=== PATIENT | female | born 1985 | race Caucasian/White ===

== ENCOUNTER 2016-10-17 19:07 | Observation (INO) | payer OTHER ==
[~2016-10-17 19:07] MED LIST: IRON325 MG PO
--- NOTE | 2016-10-17 21:01 | ED NURSING NOTES ---
Clinical Report - Nurses [facility] [address] [place] [address] 10/17/2016 19:07 [id number] TRIAGE Triage time 19:02 Oct 17 2016. Acuity: LEVEL 3. Chief Complaint: FAINTING. 19:11 10/17/16. SEPSIS SCREEN: Sepsis Screen: negative. Negative (no infection suspected/documented). RYAN COMA SCORE: [place] Coma Scale: 15- eyes open spontaneously (4); best verbal response- oriented x 4 (5); best motor response- obeys commands (6). --19:11 Namrata Warner R.N. 19:02 10/17/16. BP: 117/61. HR: 102. RR: 12. O2 saturation: 100%. Temp: 99 F. Worrell-Westbrook pain scale: 2/10. --19:11 Namrata Warner R.N. 21:21 10/17/16. Alert (Autism spectrum disorder). --21:21 Namrata Warner R.N. Weight: 70 kg measured. Height/Length: 63 inches Per Patient. BMI: 27.3. --19:02 Namrata Warner R.N. Medications Heartburn pill. --19:06 Namrata Warner R.N. Allergy pill. --19:06 Namrata Warner R.N. Medication/allergy information source: the patient. --19:11 Namrata Warner R.N. Allergies No Known Drug Allergy. --19:06 Namrata Warner R.N. History Arrived by EMS. Historian: EMS and patient. This started just prior to arrival. ( PATIENT WAS A [employer] WITH HER BOYFRIEND WHEN SHE BECAME DIZZY, SHE WAS GOING TO SIT ON THE FLOOR WHEN SHE EITHER PASSED OUT OR NEARLY PASSED OUT. SHE DID STRIKE THE BACK OF HER HEAD ON THE CONCRETE FLOOR. SHE NOW COMPLAINS OF A HEADACHE). PAST MEDICAL HX: Immunizations: seasonal influenza. Last normal menstrual period- STATES THE END OF SEPTEMBER. SOCIAL HX: Never smoker. No alcohol use or drug use. No infectious disease exposure. ABUSE ASSESSMENT: No report of abuse. SELF HARM ASSESSMENT: A self harm assessment was performed. The patient answered "no" to the question "Have you recently felt down, depressed, or hopeless?", "Have you noticed less interest or pleasure in doing things?", "Do you have thoughts of harming or killing yourself?", "Are you here because you tried to hurt yourself?", "Have you ever tried to hurt yourself before today?", "Have you recently had thoughts about harming or killing others?" and "Do you have any dangerous items in your possession?". FALL RISK ASSESSMENT: Fall risk assessment completed. No fall risk identified. NUTRITIONAL RISK ASSESSMENT: The nutritional risk assessment revealed no deficiencies. FUNCTIONAL ASSESSMENT: Functional assessment: no impairments noted. LEARNING NEEDS ASSESSMENT: The learning needs assessment revealed no barriers. SKIN INTEGRITY ASSESSMENT: Skin integrity risk assessment completed. No skin integrity risk identified. --19:11 Namrata Warner R.N. Interventions ID band on patient. --19:11 Namrata Warner R.N. PHYSICAL ASSESSMENT 19:13 10/17/16. To room via stretcher. GENERAL / NEURO / PSYCH: Alert. Oriented X 4. HEENT: Pupils equal, round and reactive to light. No facial weakness. No sinus tenderness present or nasal discharge. Mucous membranes are pink. RESPIRATORY: Respirations not labored. Breath sounds within normal limits. CVS: Normal sinus rhythm noted. Capillary refill less than 2 seconds. Pulses within normal limits. GI / : Abdomen soft and nontender. SKIN: Skin intact. Skin is pale. Skin is dry. Normal skin turgor. --19:13 Namrata Warner R.N. NURSING PROGRESS NOTES 19:12 10/17/16. The initial plan of care for this patient includes an assessment with efforts to address the presence of pain; impairment of the cardiovascular, gastrointestinal and neurological system; hydration needs. This plan of care was discussed with the patient. monitor and storage bin tender, pulse oximeter and NIBP monitor placed on patient; manager cardiac- Lead II; monitor alarms on. Patient gowned. Patient identifiers checked. Call light placed in reach. Side rails up x 2. Bed placed in lowest position. Brakes of bed on. Patient ready for evaluation. ( BOYFRIEND IS WITH PATIENT AT BEDSIDE). --19:12 Namrata Warner R.N. 19:27 10/17/2016 Site #1 started via IV in the left antecubital space with an 20g angiocath, with aseptic technique and good blood return; one attempt. Blood drawn: rainbow set. Labeled in the presence of the patient and sent to the lab. Saline lock flushed with 10 mL saline (large pink tube drawn at time of IV start, blood band placed on pt.). --19:32 Lalitha rIby R.N. 19:36 10/17/16. Patient ID band checked for patient name and birthdate: patient confirmed. Instructions provided to collect clean catch urine and patient verbalized understanding. Clean catch urine collected with return of mark-colored clear urine; sample sent to lab for urinalysis and HCG. Specimen labeled in the presence of the patient. --19:36 Namrata Warner R.N. 20:02 10/17/2016 Started bag #1 1000 mL IV Fluids IV NS (Saline); at 2000 mL/hr over 30 minute(s) via site #1. Allergies verified and confirmed 5 rights. IV patency established. IV site checked: no pain, redness, or swelling. IV flushed thoroughly pre- and post-medication administration. --20:02 Namrata Warner R.N. 20:32 10/17/2016 IV Fluids IV NS Discontinued: bag #1 completed. Total amount infused: 1000 mL. --20:48 Namrata Warner R.N. 20:51 10/17/16. Reassessment after fluids administered. She has had no adverse reaction. Overall patient status is the same- she states feels the same. ( to be admitted). --20:51 Namrata Warner R.N. 20:51 10/17/16. BP: 123/78. HR: 103. RR: 18. O2 saturation: 100%. Pain level now 10/18. --20:51 Namrata Warner R.N. 20:52 10/17/16. Hemoccult test positive. (POC test reference range: negative). --20:52 Namrata Warner R.N. ( Orthostatic supine BP 123/72 HR 116). --21:25 [place]urch ( Orthostatic Sitting BP 117/65 HR 108). --21:25 [place] ( Orthostatic Standing BP 131/83 HR 110). --21:25 [place]. DISPOSITION / DISCHARGE 21:44 10/17/2016 Site #[address] upon admission; patent. Good blood return present. Flushed with 10 mL saline; flushes easily. --21:44 Namrata Warner R.N. 21:44 10/17/16. Departure time: 21:44 Oct 17 2016. Condition at departure: improved and stable. The goals identified in the patient's plan of care were met. Disposition: observation in Acute Care. Report was given to a nurse via a phone call. Report included patient's care, treatment, medications, reviewed medication reconcilliation, and condition (including any recent changes or anticipated changes). All questions were answered. (to MATIAS Yip). FALL RISK ASSESSMENT: Fall risk assessment completed. No fall risk identified. --21:44 Namrata Warner R.N. 20:47 10/17/16. BP: 123/78. HR: 103. RR: 18. O2 saturation: 100%. Pain level now 10/18. 19:02 10/17/16. BP: 117/61. HR: 102. RR: 12. O2 saturation: 100%. Temp: 99 F. Worrell-Westbrook pain scale: 10. --21:44 Namrata Warner R.N. Locked/Released at 10/17/2016 21:46 by Namrata Warner R.N.
--- NOTE | 2016-10-17 21:01 | ED ORDER SUMMARY ---
..... Patient: JAVIER WHITESIDE OrderSheet [facility] VisitID: [id number] [place] [address] 30y, F Registration Date/Time: 10/17/2016 ORDER SHEET Weight: 70 kg (measured) Allergies: No Known Drug Allergy GENERAL ORDERS: UA-Culture if indicated Urgent (19:32 10/17/2016 EInderbitzen R.N. verbal order read back to HBivens A.R.N.P.) (Ack 19:38 CHagerty ER Course Instructor) (19:41 CHagerty ER Course Instructor) Urine Urgent (19:32 10/17/2016 EInderbitzen R.N. verbal order read back to HBivens A.R.N.P.) (Ack 19:38 CHagerty ER Course Instructor) (19:41 CHagerty ER Course Instructor) CBC w Diff Urgent (19:56 10/17/2016 HBivens A.R.N.P.) (Ack 20:02 CHagerty ER Course Instructor) (20:47 EInderbitzen R.N.) BMP Urgent (19:56 10/17/2016 HBivens A.R.N.P.) (Ack 20:02 CHagerty ER Course Instructor) (20:47 EInderbitzen R.N.) Type & Screen Urgent (20:57 10/17/2016 HBivens A.R.N.P.) (Ack 21:07 CHagerty ER Course Instructor) Vitals - Orthostatic (20:57 10/17/2016 HBivens A.R.N.P.) (Ack 21:07 CHagerty ER Course Instructor) EKG - ER Stat (20:57 10/17/2016 HBivens A.R.N.P.) (Ack 21:07 CHagerty ER Course Instructor) MEDICATION ORDERS: IV FLUIDS: IV NS : initial bolus 1000 mL (1000 mL/hr), then none - (NOW) (19:56 10/17/2016 HBivens A.R.N.P.) (20:02 EInderbitzen R.N.) ORDER SHEET NOTES: [Electronically signed by Namrata Warner R.N. (21:46 10/17/2016)] [Electronically signed by Annika Leal (22:38 10/17/2016)] [Electronically locked/signed by Namrata Warner R.N. (21:46 10/17/2016)]
--- NOTE | 2016-10-17 21:01 | ED CLINICAL REPORT ---
Clinical Report - Physicians/Mid Levels [facility] [address] [place] [address] 10/17/2016 19:07 Patient: JAVIER WHITESIDE Time Seen: 1930; initial patient contact, initial documentation, patient care assumed. Arrived- By ambulance. Historian- patient. HISTORY OF PRESENT ILLNESS The patient has recovered. Chief Complaint: SYNCOPE. This occurred just prior to arrival. Event was witnessed. The patient had preceding symptoms of light-headedness and warmth. No preceding symptoms of chest pain or abdominal pain. The event occurred during light exertion (walking thru [employer]). The patient felt faint, lost consciousness and collapsed. No seizure activity, incontinence or apnea noted. Did not lose pulse. Had a single episode. The episode was brief and lasted seconds. Location of injuries- head. Currently she does not feel normal. No weakness currently. No nausea currently. Currently has headache. Similar symptoms previously: None. Recent medical care: Not recently seen/assessed. REVIEW OF SYSTEMS Last normal menstrual period- about x2 wks ago. Sexual history - sexually active, engages in unprotected sex and heterosexual. No contraception. She has had a headache and dizziness. No chest pain, palpitations, abdominal pain, vomiting or diarrhea. No black stools, bloody stools, fever, difficulty breathing or difficulty with urination. All systems otherwise negative, except as recorded above. PAST HISTORY See nurses notes. ( Hemorrhoids. Problems: Bartholin's Abscess. Autism. Seasonal allergic rhinitis. Dental Abscess. Additional Surgeries: Cyst.). SOCIAL HISTORY Light tobacco smoker. Occasional alcohol use. No drug use. No recent travel. Is a local resident. FAMILY HISTORY Negative. ADDITIONAL NOTES The nursing notes have been reviewed with agreement regarding the chief complaint, HPI, ROS, PMH and patient medications and allergies. PHYSICAL EXAM Vital Signs: 10/17/2016 19:02 BP: 117/61. HR: 102. RR: 12. O2 saturation: 100%. Temp: 99 F. Worrell-Westbrook pain scale: 2/10. Have been reviewed as abnormal and appear to be correct. Blood pressure normal. Tachycardic. Respiratory rate normal. Temperature normal. Oxygen saturation normal. Appearance: Alert. No acute distress. Eyes: Pupils equal, round and reactive to light. No nystagmus. Extraocular movements normal. ENT: Normal ENT inspection. TM's normal. Moist mucous membranes. Pharynx normal. Neck: Normal inspection. Neck supple. CVS: Heart rate / rhythm abnormal. Tachycardia (ventricular rate = 110). Heart sounds normal. Pulses normal. Respiratory: No respiratory distress. Breath sounds normal. Abdomen: Soft and nontender. No organomegaly. Back: Normal inspection. Rectal: Abnormal rectal exam. Abnormal digital exam: mild tenderness, inflamed and bleeding external hemorrhoids. Strongly heme-positive stool; hemoccult quality control assessor check passed. (POC test reference range: negative). No blood visibly present. Skin: Skin warm but moist. Normal skin color. No rash. Normal skin turgor. Slight diaphoresis. Extremities: Extremities exhibit normal ROM. No lower extremity edema. Neuro: Alert. Oriented X 3. Mood/affect normal. Speech normal. Cranial nerves normal (as tested). No cerebellar findings. No motor deficit. No sensory deficit. LABS, X-RAYS, AND EKG Laboratory Tests: UA-Culture if indicated: (MILTON: 10/17/2016 19:32) ( MsgRcvd 10/17/2016 20:01) Final results Test Result Flag Units (Reference) URINE COLOR YELLOW URINE APPEARANCE CLEAR URINE GLUCOSE NEGATIVE (NEGATIVE) URINE BILIRUBIN NEGATIVE (NEGATIVE) URINE KETONE NEGATIVE (NEGATIVE) URINE SPECIFIC GRAVITY >= 1.030 (1.010-1.030) URINE PH 6.0 (5.0-8.0) URINE PROTEIN NEGATIVE (NEGATIVE) URINE UROBILINOGEN 0.2 EU/dL (0.2-1.0) URINE NITRITE NEGATIVE (NEGATIVE) URINE BLOOD 1+ (NEGATIVE) URINE LEUK ESTERASE NEGATIVE (NEGATIVE) URINE RBC 0-1 rbc/hpf (0-1) URINE WBC 3-5 wbc/hpf (0-1) URINE EPITHELIAL CELLS 5-10 EPI/hpf (0-5) URINE BACTERIA FEW (1+) (NONE SEEN) URINE COMMENT CULT NOT INDICATED 2+ MUCUSURINE CULTURES ARE SET-UP BASED ON THE FOLLOWING CRITERIA:POSITIVE NITRITEPOSITIVE LEUKOCYTE ESTERASEGREATER THAN 10 WHITE BLOOD CELLSMODERATE (2+) OR GREATER BACTERIA Urine: (MILTON: 10/17/2016 19:32) ( [facility] 10/17/2016 19:49) Final results Test Result Flag Units (Reference) URINE NEGATIVE CBC w Diff: (MILTON: 10/17/2016 19:18) ( [facility] 10/17/2016 20:30) Final results Test Result Flag Units (Reference) WHITE BLOOD COUNT 6.9 K/uL (4.5-11.5) RED BLOOD COUNT 3.81 L M/uL (4.00-5.20) HEMOGLOBIN 7.3 L gm/dL (12.0-16.0) HEMATOCRIT 24.0 L % (36.0-46.0) MEAN CELL VOLUME 63 L fL (80-100) MEAN CORPUSCULAR HGB 19 L pg (26-34) MEAN CORPUSCULAR HGB CONC 30 L g/dL (31-37) RED CELL DISTRIBUTION WIDTH 21.0 H % (11.6-14.8) PLATELET COUNT 425 H K/uL (150-400) NEUTROPHIL % 65.0 % (50-75) LYMPH % 27.0 % (25-40) MONO % 6.2 % (3-14) EOSINOPHIL % 1.7 % (0-4) BASOPHIL % 0.1 % (0-2) RBC MORPHOLOGY 1+ MICROCYTOSIS~~1+ HYPOCHROMASIA~~2+ ANISOCYTOSIS BMP: (MILTON: 10/17/2016 19:18) ( [facility] 10/17/2016 20:15) Final results Test Result Flag Units (Reference) GLUCOSE 93 mg/dL (70-110) BUN 12 mg/dL (7-18) CREATININE 0.7 mg/dL (0.6-1.3) Estimated GFR >60 mL/min Estimated GFR- >60 mL/min Note: Persistent reduction over 3 months in eGFR<60 mL/min/1.73 m2 defines CKD. Patients with eGFR values>=60 mL/min/1.73 m2 may also have CKD if evidence ofpersistent proteinuria. Additional information may be foundat www.kidney.org. SODIUM 145 mmol/L (136-145) POTASSIUM 3.2 L mmol/L (3.5-5.1) CHLORIDE 109 H mmol/L (98-107) CARBON DIOXIDE 23 mmol/L (21-32) CALCIUM 8.5 mg/dL (8.5-10.1) . PROGRESS AND PROCEDURES Discussed case with on-call health care provider, (call returned [phone] Dr. Borja). Reviewed test results. Agreed upon treatment plan and decision to admit. Health care provider will see patient in hospital. Patient counseled in person regarding the patient's stable condition, test results, diagnosis and need for additional testing and admission. 2039. Differential Diagnosis: I considered situational stimulus, cough, sneezing, swallowing, post-prandial state, cardiac sinus hypersensitivity, prolonged recumbancy, prolonged standing, hypovolemia, autonomic neuropathy, adrenal insufficiency, arrhythmia, heart block, myocardial infarction, idiopathic hypertrophic subaortic stenosis, aortic stenosis, cardiac myxoma, left ventricular dysfunction, seizure, hypoxia, hypoglycemia and hysteria as a possible cause of syncope in this patient. This is a partial list of diagnoses considered. (substance abuse). Above considerations are based on history, physical exam, reassessment, laboratory data, EKG and other information. Differential diagnosis was discussed with patient and patient's spouse. Disposition: Admitted to Acute Care. 20:59. Condition: good and stable. CLINICAL IMPRESSION Syncope of unknown cause. Severe acute anemia. (Electronically signed by Annika Leal A.R.N.P. 10/17/2016 22:38)
--- NOTE | 2016-10-17 21:01 | ED ORDER SUMMARY ---
..... Patient: JAVIER WHITESIDE OrderSheet [facility] VisitID: [id number] [place] [address] 30y, F Registration Date/Time: 10/17/2016 ORDER SHEET Weight: 70 kg (measured) Allergies: No Known Drug Allergy GENERAL ORDERS: UA-Culture if indicated Urgent (19:32 10/17/2016 EInderbitzen R.N. verbal order read back to HBivens A.R.N.P.) (Ack 19:38 CHagerty ER Community Chest Officer) (19:41 CHagerty ER Community Chest Officer) Urine Urgent (19:32 10/17/2016 EInderbitzen R.N. verbal order read back to HBivens A.R.N.P.) (Ack 19:38 CHagerty ER Community Chest Officer) (19:41 CHagerty ER Community Chest Officer) CBC w Diff Urgent (19:56 10/17/2016 HBivens A.R.N.P.) (Ack 20:02 CHagerty ER Community Chest Officer) (20:47 EInderbitzen R.N.) BMP Urgent (19:56 10/17/2016 HBivens A.R.N.P.) (Ack 20:02 CHagerty ER Community Chest Officer) (20:47 EInderbitzen R.N.) Type & Screen Urgent (20:57 10/17/2016 HBivens A.R.N.P.) (Ack 21:07 CHagerty ER Community Chest Officer) Vitals - Orthostatic (20:57 10/17/2016 HBivens A.R.N.P.) (Ack 21:07 CHagerty ER Community Chest Officer) EKG - ER Stat (20:57 10/17/2016 HBivens A.R.N.P.) (Ack 21:07 CHagerty ER Community Chest Officer) MEDICATION ORDERS: IV FLUIDS: IV NS : initial bolus 1000 mL (1000 mL/hr), then none - (NOW) (19:56 10/17/2016 HBivens A.R.N.P.) (20:02 EInderbitzen R.N.) ORDER SHEET NOTES: [Electronically signed by Namrata Warner R.N. (21:46 10/17/2016)] [Electronically signed by Annika Leal (22:38 10/17/2016)] [Electronically locked/signed by Namrata Warner R.N. (21:46 10/17/2016)]
[2016-10-17 21:28] VITALS: BP 123/78
[2016-10-17 22:00] VITALS: BP 122/69
--- NOTE | 2016-10-17 22:38 | ED MAR SUMMARY ---
..... Medication Administration Record [facility] [address] [place] [address] Patient: JAVIER WHITESIDE Visit ID: [id number] 30y, F Weight: 70.0 kg Height/Length: 63 in BMI: 27.3 ALLERGIES: No Known Drug Allergy Start 20:02 10/17/2016 Namrata Warner R.N., Stop 20:32 10/17/2016 Namrata Warner R.N. Medication Administered: IV NS (SALINE), Dose: IV Fluids over 30 minute(s), Rate: 2000 mL/hr, Dispensed: 1000 mL bag, Site: #1 left . Medication Ordered: IV NS : initial bolus 1000 mL (1000 mL/hr), then none - (NOW).
--- NOTE | 2016-10-17 22:38 | ED DISCHARGE INSTRUCTIONS ---
Patient: JAVIER WHITESIDE General Instructions [facility] VisitID: [id number] [address] [place] [address] 30y, F Registration Date/Time: 10/17/2016 Syncope of unknown cause. Severe acute anemia. (Electronically signed by Annika Leal A.R.N.P. 10/17/2016 22:38)
--- NOTE | 2016-10-17 22:38 | ED MED RECONCILIATION SUMMARY ---
Patient: EDUARDO WHITESIDEA Grant Medication Reconciliation Report [facility] VisitID: [id number] [address] [place] [address] 30y, F Registration Date/Time: 10/17/2016 Weight: 70 kg Height/Length: 63 in. BMI: 27.3 ALLERGIES: No Known Drug Allergy The patient's Home Medications are listed below: THE FOLLOWING MEDICATIONS NEED TO BE RECONCILED: Allergy pill Heartburn pill The source(s) of the original Home Medication information: patient The following Medications were given to the patient in the Emergency Department: IV NS IV Fluids bolus 0, then 2000 mL/hr, administered: 10/17/2016 8:02:00 PM The following Medications were prescribed to the patient: None.
--- NOTE | 2016-10-17 22:38 | ED MAR SUMMARY ---
..... Medication Administration Record [facility] [address] [place] [address] Patient: JAVIER WHITESIDE Visit ID: [id number] 30y, F Weight: 70.0 kg Height/Length: 63 in BMI: 27.3 ALLERGIES: No Known Drug Allergy Start 20:02 10/17/2016 Namrata Warner R.N., Stop 20:32 10/17/2016 Namrata Warner R.N. Medication Administered: IV NS (SALINE), Dose: IV Fluids over 30 minute(s), Rate: 2000 mL/hr, Dispensed: 1000 mL bag, Site: #1 left . Medication Ordered: IV NS : initial bolus 1000 mL (1000 mL/hr), then none - (NOW).
--- NOTE | 2016-10-17 22:38 | ED DISCHARGE INSTRUCTIONS ---
Patient: JAVIER WHITESIDE General Instructions [facility] VisitID: [id number] [address] [place] [address] 30y, F Registration Date/Time: 10/17/2016 Syncope of unknown cause. Severe acute anemia. (Electronically signed by Annika Leal A.R.N.P. 10/17/2016 22:38)
--- NOTE | 2016-10-17 22:38 | ED MED RECONCILIATION SUMMARY ---
Patient: EDUARDO WHITESIDEA Grant Medication Reconciliation Report [facility] VisitID: [id number] [address] [place] [address] 30y, F Registration Date/Time: 10/17/2016 Weight: 70 kg Height/Length: 63 in. BMI: 27.3 ALLERGIES: No Known Drug Allergy The patient's Home Medications are listed below: THE FOLLOWING MEDICATIONS NEED TO BE RECONCILED: Allergy pill Heartburn pill The source(s) of the original Home Medication information: patient The following Medications were given to the patient in the Emergency Department: IV NS IV Fluids bolus 0, then 2000 mL/hr, administered: 10/17/2016 8:02:00 PM The following Medications were prescribed to the patient: None.
--- NOTE | 2016-10-17 23:11 | Progress Note ---
Subjective General Admission History and Physical Examination Patient Name: Yvonne Gloria Admission Date: October 17, 2016 Primary Care Provider: ERNESTINE Crum Attending Physician: Enoc Borja M.D. Admitting Physician: Enoc Borja M.D. SUBJECTIVE Historian: Patient, family Reliability: Fair Chief Complaint: Syncope History of Present Illness: The patient is a 30-year-old white female with a history of autism, anemia, who presented to [facility] emergency department on the day of admission secondary to complaints of syncope. [facility] ER evaluation was consistent with syncope, anemia. Secondary to the above, the patient was admitted by Enoc Borja M.D. for further evaluation and treatment. The history of present illness began on the day of admission when the patient was shopping at [employer] and experienced a episode of syncope. This was preceded by nausea and lightheadedness. She denied any history of chest pain, shortness of breath, palpitations, or other constitutional symptoms. She had a brief episode of loss of consciousness of 5-15 seconds. She was completely normal post this episode of loss of consciousness with no neurological deficits or other symptoms noted. The patient denied any other symptoms but was brought to [facility] emergency department for further evaluation and treatment. [facility] ER evaluation was consistent with syncope-probable vasovagal, anemia-H&H 7.3/24.0, MCV 63. Secondary to the above, the patient was admitted for further evaluation and treatment. The patient has a history of chronic anemia-iron deficiency. She has not taken iron supplements recently. She was hospitalized at [facility] in 2016 undergoing upper endoscopy, lower endoscopy, and rigid proctosigmoidoscopy without any identifiable source for the patient's anemia. It was felt that her anemia was most likely gynecological related with irregular menses at that time. PAST MEDICAL HISTORY Illnesses: 1. Anemia-iron deficiency 2. Developmental delay-autism 3. Gastroesophageal reflux Allergies: 1. No known drug allergies Medications: 1. Ferrous sulfate 325 mg 1 by mouth twice a day (patient not taking) Surgery: 1. Colonoscopy 2. Upper endoscopy 3. Bartholin's glands surgery Injuries: 1. No significant Hospitalizations: 1. For above surgery and medical problems FAMILY HISTORY Parents: 1. Father, Jacky, living, 55, gout, 2. Mother, Melania, living, 57, thyroid problems Siblings: 1. Male, Jacky, living, 27, healthy 2. Female, Stephanie, living, 24, healthy Children: 1. None Other significant family history: Diabetes mellitus, heart disease, thyroid disease SOCIAL HISTORY 1. Marital Status: Single 2. Denominational: None 3. Education: High school 4. Employment History: Unemployed 5. Occupational health exposures: None HABITS 1. Tobacco: Occasional use of cigars 2. Drugs: None 3. Alcohol: 2 ounces per week 4. Caffeine: 8 cups tea per day, 7 cans soft drinks per day HEALTH SUPERVISION Item/Test 1. Not reviewed IMMUNIZATIONS: 1. Pneumococcal: 2016 2. Influenza: 2016 3. Tetanus: Unknown ADVANCED DIRECTIVES: 1. The patient wishes to be placed on a FULL CODE STATUS REVIEW OF SYSTEMS Remarkable for those things stated in the history of present illness and past medical history. Seventeen point review of system completed with the following notable findings: General: Fatigue, weakness Gastrointestinal: Heartburn Musculoskeletal: Joint pain, backache Neurological: Syncope, headaches Blood and lymphatic: Anemia Psychological: Difficulty sleeping, anxiety Genitalia: Heavy menses Physical Exam Vital Signs / I&Os Vital Signs Date Time Temp Pulse Resp B/P Pulse O2 O2 Flow FiO2 Ox Delivery Rate 10/17 2199 89 16 122/69 100 Room Air 10/17 2127 103 18 123/78 100 General Appearance Alert, Cooperative, No acute distress HEENT Atraumatic, PERRLA, EOMI, Moist mucous membranes, conjunctiva pale Lungs Clear to auscultation, Normal air movement Neck Supple, No JVD Cardiovascular Regular rate and rhythm, Normal S1 and S2, No murmurs, gallops, rubs Abdomen Normal bowel sounds, Soft, No tenderness, No guarding Extremities No cyanosis, No clubbing, No edema Skin pale Neurological Cranial nerves intact, Strength 5/5 x4 ext's, No lateralizing signs Psych/Mental Status Mental status normal, Mood normal LAB Results Laboratory Tests 10/17 10/17 10/17 10/17 193 [id number] Chemistry Iron (35 - 150 ug/dL) 12 Vitamin B12 (211 - 946 pg/mL) 340 Urines Urine Color YELLOW Urine Appearance CLEAR Urine pH (5.0 - 8.0) 6.0 Ur Specific [place] (1.010 - 1.030) >= 1.030 Urine Protein (NEGATIVE) NEGATIVE Urine Ketones (NEGATIVE) NEGATIVE Urine Blood (NEGATIVE) 1+ Urine Nitrite (NEGATIVE) NEGATIVE Urine Bilirubin (NEGATIVE) NEGATIVE Urine Urobilinogen (0.2 - 1.0 EU/dL) 0.2 Ur Leukocyte Esterase (NEGATIVE) NEGATIVE Urine RBC (0 - 1 rbc/hpf) 0-1 Urine WBC (0 - 1 wbc/hpf) 3-5 Ur Epithelial Cells (0 - 5 EPI/hpf) 5-10 Urine Bacteria (NONE SEEN) FEW (1+) Urine Glucose (NEGATIVE) NEGATIVE Urine Test NEGATIVE Urine Comment CULT NOT INDICATED 10/17 1917 Chemistry Plasma Sodium (136 - 145 mmol/L) 145 Plasma Potassium (3.5 - 5.1 mmol/L) 3.2 Plasma Chloride (98 - 107 mmol/L) 109 CO2 (Enzymatic) (21 - 32 mmol/L) 23 BUN (7 - 18 mg/dL) 12 Creatinine (0.6 - 1.3 mg/dL) 0.7 Est GFR ( Amer) (mL/min) >60 Est GFR (Non-Af Amer) (mL/min) >60 Glucose (70 - 110 mg/dL) 93 Plasma Calcium (8.5 - 10.1 mg/dL) 8.5 Hematology WBC (4.5 - 11.5 K/uL) 6.9 RBC (4.00 - 5.20 M/uL) 3.81 Hgb (12.0 - 16.0 gm/dL) 7.3 Hct (36.0 - 46.0 %) 24.0 MCV (80 - 100 fL) 63 MCH (26 - 34 pg) 19 RDW (11.6 - 14.8 %) 21.0 Neut % (Auto) (50 - 75 %) 65.0 Lymph % (Auto) (25 - 40 %) 27.0 [place] % (Auto) (3 - 14 %) 6.2 Eos % (Auto) (0 - 4 %) 1.7 Baso % (Auto) (0 - 2 %) 0.1 Plt Count, EDTA (150 - 400 K/uL) 425 RBC Morphology (1910 A) 2+ ANISOCYTOSIS PUBS MCHC (31 - 37 g/dL) 30 Assessment and Plan Problem List 1. Syncope and collapse Plan -Patient presents with history of syncope. -Patient experienced nausea prior to episode -Patient had a very short period of loss of consciousness 5-10 seconds. Normal neurological exam post episode -No history of chest pain, palpitations, shortness of breath, abdominal pain prior to episode -No subsequent episodes of lightheadedness -Patient with history of syncope in childhood 2. Gastroesophageal reflux Status Chronic Onset Date Unknown Plan -Patient has history of gastroesophageal reflux -Protonix 40 mg by mouth daily -Nonsymptomatic at this time. 3. Hypokalemia Status Acute Onset Date Unknown Plan -mild -recheck in am -IV with KCl -monitor 4. Iron deficiency anemia Status Chronic Onset Date Unknown Plan -Patient with history of iron deficiency anemia -Patient has refused taking iron recently -Iron studies consistent with iron deficiency anemia -Hold transfusion, place back on iron supplementation -Outpatient follow-up with PCP -IV iron if patient refuses to take iron in future Current status: Fair, unstable Anticipated discharge date: Anticipated discharge in 24 hours Anticipated discharge placement: Home Patient care time: Time spent in chart review, patient interview, physical exam, CPOE, and care documentation: 70 minutes Visit to patient today: 2 Complexity of care: High E&M Codes Admission: Obsv-Comp/High/[id number]
--- NOTE | 2016-10-17 23:11 | Progress Note ---
Subjective General Admission History and Physical Examination Patient Name: Yvonne Gloria Admission Date: October 17, 2016 Primary Care Provider: ERNESTINE Crum Attending Physician: Enoc Borja M.D. Admitting Physician: Enoc Borja M.D. SUBJECTIVE Historian: Patient, family Reliability: Fair Chief Complaint: Syncope History of Present Illness: The patient is a 30-year-old white female with a history of autism, anemia, who presented to [facility] emergency department on the day of admission secondary to complaints of syncope. [facility] ER evaluation was consistent with syncope, anemia. Secondary to the above, the patient was admitted by Enoc Borja M.D. for further evaluation and treatment. The history of present illness began on the day of admission when the patient was shopping at [employer] and experienced a episode of syncope. This was preceded by nausea and lightheadedness. She denied any history of chest pain, shortness of breath, palpitations, or other constitutional symptoms. She had a brief episode of loss of consciousness of 5-15 seconds. She was completely normal post this episode of loss of consciousness with no neurological deficits or other symptoms noted. The patient denied any other symptoms but was brought to [facility] emergency department for further evaluation and treatment. [facility] ER evaluation was consistent with syncope-probable vasovagal, anemia-H&H 7.3/24.0, MCV 63. Secondary to the above, the patient was admitted for further evaluation and treatment. The patient has a history of chronic anemia-iron deficiency. She has not taken iron supplements recently. She was hospitalized at [facility] in 2016 undergoing upper endoscopy, lower endoscopy, and rigid proctosigmoidoscopy without any identifiable source for the patient's anemia. It was felt that her anemia was most likely gynecological related with irregular menses at that time. PAST MEDICAL HISTORY Illnesses: 1. Anemia-iron deficiency 2. Developmental delay-autism 3. Gastroesophageal reflux Allergies: 1. No known drug allergies Medications: 1. Ferrous sulfate 325 mg 1 by mouth twice a day (patient not taking) Surgery: 1. Colonoscopy 2. Upper endoscopy 3. Bartholin's glands surgery Injuries: 1. No significant Hospitalizations: 1. For above surgery and medical problems FAMILY HISTORY Parents: 1. Father, Jacky, living, 55, gout, 2. Mother, Melania, living, 57, thyroid problems Siblings: 1. Male, Jacky, living, 27, healthy 2. Female, Stephanie, living, 24, healthy Children: 1. None Other significant family history: Diabetes mellitus, heart disease, thyroid disease SOCIAL HISTORY 1. Marital Status: Single 2. Baptist: None 3. Education: High school 4. Employment History: Unemployed 5. Occupational health exposures: None HABITS 1. Tobacco: Occasional use of cigars 2. Drugs: None 3. Alcohol: 2 ounces per week 4. Caffeine: 8 cups tea per day, 7 cans soft drinks per day HEALTH SUPERVISION Item/Test 1. Not reviewed IMMUNIZATIONS: 1. Pneumococcal: 2016 2. Influenza: 2016 3. Tetanus: Unknown ADVANCED DIRECTIVES: 1. The patient wishes to be placed on a FULL CODE STATUS REVIEW OF SYSTEMS Remarkable for those things stated in the history of present illness and past medical history. Seventeen point review of system completed with the following notable findings: General: Fatigue, weakness Gastrointestinal: Heartburn Musculoskeletal: Joint pain, backache Neurological: Syncope, headaches Blood and lymphatic: Anemia Psychological: Difficulty sleeping, anxiety Genitalia: Heavy menses Physical Exam Vital Signs / I&Os Vital Signs Date Time Temp Pulse Resp B/P Pulse O2 O2 Flow FiO2 Ox Delivery Rate 10/17 2199 89 16 122/69 100 Room Air 10/17 2127 103 18 123/78 100 General Appearance Alert, Cooperative, No acute distress HEENT Atraumatic, PERRLA, EOMI, Moist mucous membranes, conjunctiva pale Lungs Clear to auscultation, Normal air movement Neck Supple, No JVD Cardiovascular Regular rate and rhythm, Normal S1 and S2, No murmurs, gallops, rubs Abdomen Normal bowel sounds, Soft, No tenderness, No guarding Extremities No cyanosis, No clubbing, No edema Skin pale Neurological Cranial nerves intact, Strength 5/5 x4 ext's, No lateralizing signs Psych/Mental Status Mental status normal, Mood normal LAB Results Laboratory Tests 10/17 10/17 10/17 10/17 193 [id number] Chemistry Iron (35 - 150 ug/dL) 12 Vitamin B12 (211 - 946 pg/mL) 340 Urines Urine Color YELLOW Urine Appearance CLEAR Urine pH (5.0 - 8.0) 6.0 Ur Specific [place] (1.010 - 1.030) >= 1.030 Urine Protein (NEGATIVE) NEGATIVE Urine Ketones (NEGATIVE) NEGATIVE Urine Blood (NEGATIVE) 1+ Urine Nitrite (NEGATIVE) NEGATIVE Urine Bilirubin (NEGATIVE) NEGATIVE Urine Urobilinogen (0.2 - 1.0 EU/dL) 0.2 Ur Leukocyte Esterase (NEGATIVE) NEGATIVE Urine RBC (0 - 1 rbc/hpf) 0-1 Urine WBC (0 - 1 wbc/hpf) 3-5 Ur Epithelial Cells (0 - 5 EPI/hpf) 5-10 Urine Bacteria (NONE SEEN) FEW (1+) Urine Glucose (NEGATIVE) NEGATIVE Urine Test NEGATIVE Urine Comment CULT NOT INDICATED 10/17 1917 Chemistry Plasma Sodium (136 - 145 mmol/L) 145 Plasma Potassium (3.5 - 5.1 mmol/L) 3.2 Plasma Chloride (98 - 107 mmol/L) 109 CO2 (Enzymatic) (21 - 32 mmol/L) 23 BUN (7 - 18 mg/dL) 12 Creatinine (0.6 - 1.3 mg/dL) 0.7 Est GFR ( Amer) (mL/min) >60 Est GFR (Non-Af Amer) (mL/min) >60 Glucose (70 - 110 mg/dL) 93 Plasma Calcium (8.5 - 10.1 mg/dL) 8.5 Hematology WBC (4.5 - 11.5 K/uL) 6.9 RBC (4.00 - 5.20 M/uL) 3.81 Hgb (12.0 - 16.0 gm/dL) 7.3 Hct (36.0 - 46.0 %) 24.0 MCV (80 - 100 fL) 63 MCH (26 - 34 pg) 19 RDW (11.6 - 14.8 %) 21.0 Neut % (Auto) (50 - 75 %) 65.0 Lymph % (Auto) (25 - 40 %) 27.0 [place] % (Auto) (3 - 14 %) 6.2 Eos % (Auto) (0 - 4 %) 1.7 Baso % (Auto) (0 - 2 %) 0.1 Plt Count, EDTA (150 - 400 K/uL) 425 RBC Morphology (1910 A) 2+ ANISOCYTOSIS PUBS MCHC (31 - 37 g/dL) 30 Assessment and Plan Problem List 1. Syncope and collapse Plan -Patient presents with history of syncope. -Patient experienced nausea prior to episode -Patient had a very short period of loss of consciousness 5-10 seconds. Normal neurological exam post episode -No history of chest pain, palpitations, shortness of breath, abdominal pain prior to episode -No subsequent episodes of lightheadedness -Patient with history of syncope in childhood 2. Gastroesophageal reflux Status Chronic Onset Date Unknown Plan -Patient has history of gastroesophageal reflux -Protonix 40 mg by mouth daily -Nonsymptomatic at this time. 3. Hypokalemia Status Acute Onset Date Unknown Plan -mild -recheck in am -IV with KCl -monitor 4. Iron deficiency anemia Status Chronic Onset Date Unknown Plan -Patient with history of iron deficiency anemia -Patient has refused taking iron recently -Iron studies consistent with iron deficiency anemia -Hold transfusion, place back on iron supplementation -Outpatient follow-up with PCP -IV iron if patient refuses to take iron in future Current status: Fair, unstable Anticipated discharge date: Anticipated discharge in 24 hours Anticipated discharge placement: Home Patient care time: Time spent in chart review, patient interview, physical exam, CPOE, and care documentation: 70 minutes Visit to patient today: 2 Complexity of care: High E&M Codes Admission: Obsv-Comp/High/[id number]
[2016-10-18] VITALS (15 sets, daily range): BP systolic 101–133; BP diastolic 59–89
[2016-10-18] MEDS ORDERED: DOCUSATE SODIU100 MG PO (08:08)
[2016-10-18] MEDS ORDERED: LIDOCAINE HCL PR (08:11)
[2016-10-18] MEDS ORDERED: OMEPRAZOLE20 M1 PO (08:12)
[2016-10-18] MEDS ORDERED: PANTOPRAZOLE SO20 MG PO (08:13)
[2016-10-18] MEDS ORDERED: METAMUCIL EQUIV1 PKT PO (08:14)
[2016-10-18] MEDS ORDERED: PROCTOSOL HC2.5 % PR (08:16)
[2016-10-18] MEDS ORDERED: XYZAL5 MG (08:17)
[2016-10-18] MEDS ORDERED: DEPO-PROVER150 MG/ML (08:19)
--- NOTE | 2016-10-18 17:49 | Progress Note ---
Subjective General Pt seen and examined. Patient has no complaints. There were no acute events overnight. Patient tolerated the blood transfusions without any problems. Constitutional Denies: Fever, Chills, Sweats, Weakness, Malaise, Other. Eyes Denies: Pain, Vision Change, Conjunctival Inflammation, Eyelid Inflammation, Redness, Other. ENT Denies: Ear Pain, Ear Discharge, Nose Pain, Nasal Discharge, Nasal Congestion, Mouth Pain, Mouth Swelling, Throat Pain, Throat Swelling, Other. Respiratory Denies: Cough, Dry, SOB w/exertion, Wheezing, Hemoptysis, Pleuritic Pain, Sputum , Other. Cardiovascular Denies: Chest Pain, Palpitations, Orthopnea, PND, Edema, Light-headedness, Other. Gastrointestinal Denies: Nausea, Vomiting, Abdominal Pain, Diarrhea, Constipation, Melena, Hematochezia, Other. Genitourinary Denies: Dysuria, Frequency, Incontinence, Hematuria, Retention, Other. Musculoskeletal Denies: Neck Pain, Shoulder Pain, Arm Pain, Back Pain, Hand Pain, Leg Pain, Foot Pain, Other. Skin Denies: Rash, Lesions, Jaundice, Bruising, Other. Physical Exam Vital Signs / I&Os Vital Signs Date Time Temp Pulse Resp B/P Pulse O2 O2 Flow FiO2 Ox Delivery Rate 10/18 1707 98.2 75 16 114/73 100 10/18 1545 98.4 97 15 129/89 100 10/18 1530 98.2 89 17 112/67 100 10/18 1515 98.2 86 16 108/62 100 10/18 1500 98.2 95 113/69 100 10/18 1438 98.2 84 15 125/80 100 10/18 1410 97.7 95 15 122/77 100 10/18 1153 99.0 103 16 107/63 100 10/18 1131 98.8 89 14 101/59 100 10/18 1100 98.2 93 14 106/67 100 10/18 1040 98.1 87 15 110/63 100 10/18 0918 Room Air 0.0 10/18 0731 98.8 91 16 114/63 100 Room Air 10/18 0200 98.1 101 18 115/68 98 Room Air 10/17 2200 89 16 122/69 100 Room Air 10/17 2128 103 18 123/78 100 I&O 10/17 0800 10/17 1600 02/10 0000 Intake Total 0 Output Total 0 Balance 0 General Appearance Alert, Oriented X3, No acute distress HEENT Atraumatic, EOMI, Moist mucous membranes Lungs Clear to auscultation Cardiovascular Regular rate and rhythm, Normal S1 and S2, No murmurs, gallops, rubs Abdomen Soft, No tenderness Extremities No edema, Normal pulses Skin No Rashes LAB Results Laboratory Tests 10/17 Chemistry Plasma Sodium (136 - 145 mmol/L) 145 Plasma Potassium (3.5 - 5.1 mmol/L) 3.2 Plasma Chloride (98 - 107 mmol/L) 109 CO2 (Enzymatic) (21 - 32 mmol/L) 23 BUN (7 - 18 mg/dL) 12 Creatinine (0.6 - 1.3 mg/dL) 0.7 Est GFR ( Amer) (mL/min) >60 Est GFR (Non-Af Amer) (mL/min) >60 Glucose (70 - 110 mg/dL) 93 Plasma Calcium (8.5 - 10.1 mg/dL) 8.5 Iron (35 - 150 ug/dL) 12 Vitamin B12 (211 - 946 pg/mL) 340 Hematology WBC (4.5 - 11.5 K/uL) 6.9 RBC (4.00 - 5.20 M/uL) 3.81 Hgb (12.0 - 16.0 gm/dL) 7.3 Hct (36.0 - 46.0 %) 24.0 MCV (80 - 100 fL) 63 MCH (26 - 34 pg) 19 RDW (11.6 - 14.8 %) 21.0 Neut % (Auto) (50 - 75 %) 65.0 Lymph % (Auto) (25 - 40 %) 27.0 [place] % (Auto) (3 - 14 %) 6.2 Eos % (Auto) (0 - 4 %) 1.7 Baso % (Auto) (0 - 2 %) 0.1 Plt Count, EDTA (150 - 400 K/uL) 425 RBC Morphology (1910) 2+ ANISOCYTOSIS PUBS MCHC (31 - 37 g/dL) 30 10/17 10/17 10/17 193 193 2306 Chemistry Iron (35 - 150 ug/dL) 8 TIBC (260 - 445 ug/dL) 382 Iron Saturation (15 - 50 %) 2 Urines Urine Color YELLOW Urine Appearance CLEAR Urine pH (5.0 - 8.0) 6.0 Ur Specific [place] (1.010 - 1.030) >= 1.030 Urine Protein (NEGATIVE) NEGATIVE Urine Ketones (NEGATIVE) NEGATIVE Urine Blood (NEGATIVE) 1+ Urine Nitrite (NEGATIVE) NEGATIVE Urine Bilirubin (NEGATIVE) NEGATIVE Urine Urobilinogen (0.2 - 1.0 EU/dL) 0.2 Ur Leukocyte Esterase (NEGATIVE) NEGATIVE Urine RBC (0 - 1 rbc/hpf) 0-1 Urine WBC (0 - 1 wbc/hpf) 3-5 Ur Epithelial Cells (0 - 5 EPI/hpf) 5-10 Urine Bacteria (NONE SEEN) FEW (1+) Urine Glucose (NEGATIVE) NEGATIVE Urine Test NEGATIVE Urine Comment CULT NOT INDICATED 10/17 10/18 10/18 2315 9098 0518 Chemistry Plasma Sodium (136 - 145 mmol/L) 143 Plasma Potassium (3.5 - 5.1 mmol/L) 3.2 Plasma Chloride (98 - 107 mmol/L) 111 CO2 (Enzymatic) (21 - 32 mmol/L) 20 BUN (7 - 18 mg/dL) 10 Creatinine (0.6 - 1.3 mg/dL) 0.6 Est GFR ( Amer) (mL/min) >60 Est GFR (Non-Af Amer) (mL/min) >60 Glucose (70 - 110 mg/dL) 87 Plasma Calcium (8.5 - 10.1 mg/dL) 8.2 Hematology WBC (4.5 - 11.5 K/uL) 7.1 RBC (4.00 - 5.20 M/uL) 3.33 Hgb (12.0 - 16.0 gm/dL) 6.4 Hct (36.0 - 46.0 %) 23.0 Cancelled 21.0 MCV (80 - 100 fL) 63 MCH (26 - 34 pg) 19 RDW (11.6 - 14.8 %) 20.9 Neut % (Auto) (50 - 75 %) 51.9 Lymph % (Auto) (25 - 40 %) 37.5 [place] % (Auto) (3 - 14 %) 8.3 Eos % (Auto) (0 - 4 %) 1.5 Baso % (Auto) (0 - 2 %) 0.8 Reticulocyte % (Auto) (0.5 - 1.5 %) 2.6 Reticulocyte # (0.02 - 0.08 M/uL) 0.0938 Plt Count, EDTA (150 - 400 K/uL) 317 RBC Morphology (46247 A) OCC TEARDROP PUBS MCHC (31 - 37 g/dL) 30 10/18 1106 Hematology Hct Cancelled Assessment and Plan Problem List 1. Anemia Plan - Pt was seen to have a hemoglobin 6.8 on admission - most likely secondary to combined iron defiency and heavy menstrual flow - pt recieved two units of prbcs without incidence - will continue to trend cbc 2. Iron deficiency anemia Status Chronic Onset Date Unknown Plan - pt has evidence of iron defiency anemia - pt has this established diagnosis but has not been taking Fe supplementation due to constipation - will proceed with iron infusion tomorrow
[2016-10-19 04:00] VITALS: BP 105/64
[2016-10-19 07:07] VITALS: BP 112/66
[2016-10-19 11:06] VITALS: BP 133/86
--- NOTE | 2016-10-19 12:16 | Discharge Summary ---
Discharge Summary Report Admit Date 10/17/16 Discharge Date 10/19/16 Admission Diagnosis anemai Discharge Diagnosis Iron defiency anemia Brief History The patient is a 30-year-old white female with a history of autism, anemia, who presented to [facility] emergency department on the day of admission secondary to complaints of syncope. [facility] ER evaluation was consistent with syncope, anemia. Secondary to the above, the patient was admitted by Enoc Borja M.D. for further evaluation and treatment. The history of present illness began on the day of admission when the patient was shopping at [employer] and experienced a episode of syncope. This was preceded by nausea and lightheadedness. She denied any history of chest pain, shortness of breath, palpitations, or other constitutional symptoms. She had a brief episode of loss of consciousness of 5-15 seconds. She was completely normal post this episode of loss of consciousness with no neurological deficits or other symptoms noted. The patient denied any other symptoms but was brought to [facility] emergency department for further evaluation and treatment. [facility] ER evaluation was consistent with syncope-probable vasovagal, anemia-H&H 7.3/24.0, MCV 63. Secondary to the above, the patient was admitted for further evaluation and treatment. The patient has a history of chronic anemia-iron deficiency. She has not taken iron supplements recently. She was hospitalized at [facility] in 2016 undergoing upper endoscopy, lower endoscopy, and rigid proctosigmoidoscopy without any identifiable source for the patient's anemia. It was felt that her anemia was most likely gynecological related with irregular menses at that time. Hospital Course Pt was transfused two units and had an appropriate response. Patient was additionally seen to have a diagnosis of iron defiency anemia for which she did not adhere to her medication secondary to side effects. As a result we gave the patient an iron infusion in order to start her on the path of having adequate iron stores. Patient today had appropirate hemoglobin levels. Patient will be discharged to home. She will follow up with her pmd for regular iron infusions and check ups. Patient will take all her home medications as prescribed General Appearance Alert, Oriented X3, No acute distress HEENT PERRLA, EOMI, Mucous membran moist/pink Lungs Clear to auscultation Cardiovascular Normal S1, Normal S2, No murmurs Abdomen No tenderness, No masses Skin No Rashes, No Breakdown Lab/Imaging Laboratory Tests 02/11 0924 Hematology WBC (4.5 - 11.5 K/uL) 8.2 RBC (4.00 - 5.20 M/uL) 4.63 Hgb (12.0 - 16.0 gm/dL) 10.1 Hct (36.0 - 46.0 %) 32.0 MCV (80 - 100 fL) 69 MCH (26 - 34 pg) 22 RDW (11.6 - 14.8 %) 26.9 Neut % (Auto) (50 - 75 %) 58.6 Lymph % (Auto) (25 - 40 %) 30.3 [place] % (Auto) (3 - 14 %) 8.2 Eos % (Auto) (0 - 4 %) 2.6 Baso % (Auto) (0 - 2 %) 0.3 Plt Count, EDTA (150 - 400 K/uL) 383 RBC Morphology (05946 A) OCC TAGET CELLS PUBS MCHC (31 - 37 g/dL) 32 Discharge Instructions/Meds - take medications as prescribed - follow up with your pmd
--- NOTE | 2016-10-19 12:16 | Provider's Discharge Care Plan ---
Problem, Goal, Plan Problem List 1. Anemia Instructions: Follow up as directed, - your blood level has returned to normal levels. If bleeding from that does not stop normally please come to the ER 2. Iron deficiency anemia Instructions: - You will need regularly scheduled iron infusions, please talk to your primary care doctor about starting routine iron infusion
--- NOTE | 2016-10-19 12:16 | Discharge Summary ---
Discharge Summary Report Admit Date 10/17/16 Discharge Date 10/19/16 Admission Diagnosis anemai Discharge Diagnosis Iron defiency anemia Brief History The patient is a 30-year-old white female with a history of autism, anemia, who presented to [facility] emergency department on the day of admission secondary to complaints of syncope. [facility] ER evaluation was consistent with syncope, anemia. Secondary to the above, the patient was admitted by Enoc Borja M.D. for further evaluation and treatment. The history of present illness began on the day of admission when the patient was shopping at [employer] and experienced a episode of syncope. This was preceded by nausea and lightheadedness. She denied any history of chest pain, shortness of breath, palpitations, or other constitutional symptoms. She had a brief episode of loss of consciousness of 5-15 seconds. She was completely normal post this episode of loss of consciousness with no neurological deficits or other symptoms noted. The patient denied any other symptoms but was brought to [facility] emergency department for further evaluation and treatment. [facility] ER evaluation was consistent with syncope-probable vasovagal, anemia-H&H 7.3/24.0, MCV 63. Secondary to the above, the patient was admitted for further evaluation and treatment. The patient has a history of chronic anemia-iron deficiency. She has not taken iron supplements recently. She was hospitalized at [facility] in 2016 undergoing upper endoscopy, lower endoscopy, and rigid proctosigmoidoscopy without any identifiable source for the patient's anemia. It was felt that her anemia was most likely gynecological related with irregular menses at that time. Hospital Course Pt was transfused two units and had an appropriate response. Patient was additionally seen to have a diagnosis of iron defiency anemia for which she did not adhere to her medication secondary to side effects. As a result we gave the patient an iron infusion in order to start her on the path of having adequate iron stores. Patient today had appropirate hemoglobin levels. Patient will be discharged to home. She will follow up with her pmd for regular iron infusions and check ups. Patient will take all her home medications as prescribed General Appearance Alert, Oriented X3, No acute distress HEENT PERRLA, EOMI, Mucous membran moist/pink Lungs Clear to auscultation Cardiovascular Normal S1, Normal S2, No murmurs Abdomen No tenderness, No masses Skin No Rashes, No Breakdown Lab/Imaging Laboratory Tests 02/11 0924 Hematology WBC (4.5 - 11.5 K/uL) 8.2 RBC (4.00 - 5.20 M/uL) 4.63 Hgb (12.0 - 16.0 gm/dL) 10.1 Hct (36.0 - 46.0 %) 32.0 MCV (80 - 100 fL) 69 MCH (26 - 34 pg) 22 RDW (11.6 - 14.8 %) 26.9 Neut % (Auto) (50 - 75 %) 58.6 Lymph % (Auto) (25 - 40 %) 30.3 [place] % (Auto) (3 - 14 %) 8.2 Eos % (Auto) (0 - 4 %) 2.6 Baso % (Auto) (0 - 2 %) 0.3 Plt Count, EDTA (150 - 400 K/uL) 383 RBC Morphology (29797 A) OCC TAGET CELLS PUBS MCHC (31 - 37 g/dL) 32 Discharge Instructions/Meds - take medications as prescribed - follow up with your pmd
== END 2016-10-19 13:45 | disposition home or self-care (01) ==
LOC: ED SRH 19:07 → TRANS SRH 21:15 → ACUTE2 SRH 22:10
PROVIDERS: ADMIT Emergency Medicine
PROC: 30233N1 Transfusion of Nonautologous Red Blood Cells into Peripheral Vein, Percutaneous Approach (ICD-10-PCS; principal; 2016-10-18)
DX: D50.9 Iron deficiency anemia, unspecified (principal); D50.0 Iron deficiency anemia secondary to blood loss (chronic); R55 Syncope and collapse; N92.0 Excessive and frequent menstruation with regular cycle; T45.4X6A Underdosing of iron and its compounds, initial encounter; Z91.128 Patient's intentional underdosing of medication regimen for other reason; E87.6 Hypokalemia; F84.0 Autistic disorder
CPT/HCPCS: 29230; 29244; 29250; 29253; 29259; 29264; 90001; 90004; 90047; 90074; 90155; 91004; 91504; 91544; 92668; 92670; 93070; 95059; 95070; 95140

== ENCOUNTER 2017-01-27 11:42 | Emergency (ER) | payer OTHER ==
[~2017-01-27 11:42] MED LIST changes: +DEPO-PROVER150 MG/ML; +DOCUSATE SODIU100 MG PO; +LIDOCAINE HCL PR; +METAMUCIL EQUIV1 PKT PO; +OMEPRAZOLE20 M1 PO; +PANTOPRAZOLE SO20 MG PO; +PROCTOSOL HC2.5 % PR; +XYZAL5 MG
--- NOTE | 2017-01-27 12:28 | DIAGNOSTIC IMAGING REPORT ---
PROCEDURE: XR CHEST 2 VIEW INDICATION: COUGH TECHNIQUE: PA and lateral views. COMPARISON: None. FINDINGS: Lungs are clear. Heart and mediastinum are normal. Thorax is normal. IMPRESSION: 1. Negative chest.
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
--- NOTE | 2017-01-27 13:58 | ED ORDER SUMMARY ---
..... Patient: JAVIER WHITESIDE OrderSheet [facility] VisitID: [id number] [address] [place] [address] 31y, F Registration Date/Time: 01/27/2017 ORDER SHEET Weight: 58.9 kg (stated) Allergies: No Known Drug Allergy GENERAL ORDERS: Chest 2V Urgent (12:01/27/2017 Krishan Rouse) (Ack 12:16 LMuller) (12:23 EHassan R.N.) MEDICATION ORDERS: Tylenol PO 650 mg (NOW) (12:01/27/2017 Krishan Rouse) (12:37 EHassan R.N.) IV FLUIDS: ORDER SHEET NOTES: [Electronically signed by Xochilt Goldman R.N. (14:01/27/2017)] [Electronically signed by Marito Blount Dr. (06:46 02/01/2017)] [Electronically locked/signed by Xochilt Goldman R.N. (14:01/27/2017)]
--- NOTE | 2017-01-27 13:58 | ED ORDER SUMMARY ---
..... Patient: JAVIER WHITESIDE OrderSheet [facility] VisitID: [id number] [address] [place] [address] 31y, F Registration Date/Time: 01/27/2017 ORDER SHEET Weight: 58.9 kg (stated) Allergies: No Known Drug Allergy GENERAL ORDERS: Chest 2V Urgent (12:01/27/2017 Krishan Rouse) (Ack 12:16 LMuller) (12:23 EHassan R.N.) MEDICATION ORDERS: Tylenol PO 650 mg (NOW) (12:01/27/2017 Krishan Rouse) (12:37 EHassan R.N.) IV FLUIDS: ORDER SHEET NOTES: [Electronically signed by Xochilt Goldman R.N. (14:01/27/2017)] [Electronically signed by Marito Blount Dr. (06:46 02/01/2017)] [Electronically locked/signed by Xochilt Goldman R.N. (14:01/27/2017)]
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
--- NOTE | 2017-02-01 06:47 | ED MED RECONCILIATION SUMMARY ---
Patient: JAVIER WHITESIDE Medication Reconciliation Report [facility] VisitID: [id number] [address] [place] [address] 31y, F Registration Date/Time: 01/27/2017 Weight: 58.9 kg Height/Length: 63 in. BMI: 23.0 ALLERGIES: No Known Drug Allergy The patient's Home Medications are listed below: CONTINUE TAKING THE FOLLOWING MEDICATIONS: Allergy pill Heartburn pill The source(s) of the original Home Medication information: patient The following Medications were given to the patient in the Emergency Department: Tylenol [PO] PO 650 mg, administered: 01/27/2017 12:32:00 PM The following Medications were prescribed to the patient: Acetaminophen (available over the counter): take according to label instructions. -- Marito Blount Dr. Motrin (available over the counter): take according to label instructions. -- Marito Blount Dr.
--- NOTE | 2017-02-01 06:47 | ED MAR SUMMARY ---
..... Medication Administration Record [facility] [address] [place] [address] Patient: JAVIER WHITESIDE Visit ID: [id number] 31y, F Weight: 58.9 kg Height/Length: 63 in BMI: 23 ALLERGIES: No Known Drug Allergy Given 12:32 01/27/2017 Xochilt Goldman R.N. Medication Administered: TYLENOL [PO] (ACETAMINOPHEN), Dose: 650 mg Capsules PO. Medication Ordered: Tylenol PO 650 mg (NOW).
--- NOTE | 2017-02-01 06:47 | ED MED RECONCILIATION SUMMARY ---
Patient: JAVIER WHITESIDE Medication Reconciliation Report [facility] VisitID: [id number] [address] [place] [address] 31y, F Registration Date/Time: 01/27/2017 Weight: 58.9 kg Height/Length: 63 in. BMI: 23.0 ALLERGIES: No Known Drug Allergy The patient's Home Medications are listed below: CONTINUE TAKING THE FOLLOWING MEDICATIONS: Allergy pill Heartburn pill The source(s) of the original Home Medication information: patient The following Medications were given to the patient in the Emergency Department: Tylenol [PO] PO 650 mg, administered: 01/27/2017 12:32:00 PM The following Medications were prescribed to the patient: Acetaminophen (available over the counter): take according to label instructions. -- Marito Blount Dr. Motrin (available over the counter): take according to label instructions. -- Marito Blount Dr.
--- NOTE | 2017-02-01 06:47 | ED DISCHARGE INSTRUCTIONS ---
Patient: JAVIER WHITESIDE General Instructions [facility] VisitID: [id number] [place] [address] 31y, F Registration Date/Time: 01/27/2017 01/27/2017 13:21 BP: 135/84. HR: 77. RR: 16. O2 saturation: 99%. Temp: 99.2 F. Adjustment disorder with anxiety. Blood pressure normal. Oxygen saturation normal. Acute viral pharyngitis INSTRUCTIONS Warnings: GENERAL WARNINGS: Return or contact your physician immediately if your condition worsens or changes unexpectedly, if not improving as expected, or if other problems arise. Specifically return if pain, vomiting, bleeding, breathing difficulty or fever. Your Current Medications: CONTINUE TAKING THE FOLLOWING MEDICATIONS: Allergy pill*. Heartburn pill*. OTC Medications: Acetaminophen (available over the counter): take according to label instructions. Motrin (available over the counter): take according to label instructions. Follow-up: Return to the emergency department as needed. Follow up with your doctor in three days. Reason for referral: recheck today's concerns. Summary of care provided to patient via paper. Screening today revealed the patient's blood pressure to be in the normal range. The patient should follow up with a primary care provider for blood pressure management. Understanding of the discharge instructions verbalized by patient. ADDITIONAL INFORMATION Viral Pharyngitis (Sore Throat) Your throat pain is due to an infection called "Viral Pharyngitis", commonly known as "Sore Throat". This is a contagious illness. It is spread through the air by coughing, kissing or by touching others after touching your mouth or nose. Symptoms include throat pain worse with swallowing, aching all over, headache and fever. Unlike strep throat, which is a bacterial infection, this illness does not require treatment with an antibiotic. Home Care: If your symptoms are severe, rest at home for the first 2-3 days. Children: Use acetaminophen (Tylenol) for fever, fussiness or discomfort. In infants over six months of age, you may use ibuprofen (Children's Motrin) instead of Tylenol. [NOTE: If your child has chronic liver or kidney disease or ever had a stomach ulcer or GI bleeding, talk with your candis doctor before using these medicines.] (Aspirin should never be used in anyone under 18 years of age who is ill with a fever. It may cause severe liver damage.) Adults: You may use acetaminophen (Tylenol) or ibuprofen (Motrin, Advil) to control pain or fever, unless another medicine was prescribed. [NOTE: If you have chronic liver or kidney disease or ever had a stomach ulcer or GI bleeding, talk with your doctor before using these medicines.] Throat lozenges or sprays (Chloraseptic and others) will reduce pain. Gargling with warm salt water will also reduce throat pain. Dissolve 1/2 teaspoon of salt in 1 glass of warm water. This is especially useful just before meals. Follow Up with your doctor or as directed by our staff if you are not improving over the next week. Get Prompt Medical Attention if any of the following occur: Fever over 100.5F (38.0C) oral, or over 101.5F (38.6C) rectal for more than three days New or worsening ear pain, sinus pain or headache Painful lumps in the back of your neck Unable to swallow liquids or open your mouth wide due to throat pain Trouble breathing or noisy breathing Muffled voice New rash Adjustment Disorder An adjustment disorder is a condition that results from having a hard time coping with the normal stresses of life. You may feel you have too much to do and cant get it all done. These feelings may be triggered by divorce, job loss, someone you know dying, or by a positive event like getting a new job or getting . These feelings may interfere with your relationships at home and at work. With this condition, it is common to feel sad, guilty, hopeless and restless. These feelings may continue for weeks or months. It can be helpful to identify what is causing the additional stress and takes steps to get extra support. If new stressful events do not occur, it is likely that you will start feeling better within six months. Home Care: If you have been given a prescription for medicine, take it as directed. It helps to talk about your feelings and thoughts with family or friends that understand and support you. Follow Up with your doctor or therapist as advised by our staff. Let them know if this condition lasts more than six months without sign of improvement. For more information, contact the [employer] at 394-836-7167 or visit www.[facility].org. Get Prompt Medical Attention if any of the following occur: Worsening depression or anxiety Feeling out of control Thoughts of harming yourself or another Being unable to care for yourself You have been given the following additional information: Pharyngitis, Viral Adjustment Disorder (Electronically signed by Marito Blount Dr. 02/01/2017 6:46)
--- NOTE | 2017-02-01 06:47 | ED MAR SUMMARY ---
..... Medication Administration Record [facility] [address] [place] [address] Patient: JAVIER WHITESIDE Visit ID: [id number] 31y, F Weight: 58.9 kg Height/Length: 63 in BMI: 23 ALLERGIES: No Known Drug Allergy Given 12:32 01/27/2017 Xochilt Goldman R.N. Medication Administered: TYLENOL [PO] (ACETAMINOPHEN), Dose: 650 mg Capsules PO. Medication Ordered: Tylenol PO 650 mg (NOW).
== END 2017-01-27 14:12 | disposition home or self-care (01) ==
LOC: ED SRH 11:42
DX: J02.9 Acute pharyngitis, unspecified (principal); F43.22 Adjustment disorder with anxiety; E11.9 Type 2 diabetes mellitus without complications; Z79.899 Other long term (current) drug therapy